=== PATIENT | female | born 1985 | race Caucasian/White ===

== ENCOUNTER 2020-04-13 15:39 | Emergency (ER) | payer BC ==
--- NOTE | 2020-04-13 17:21 | EDPHYS ---
Physician Documentation [facility] Name: Britney Siddiqui Age: 34 yrs Sex: Female : 1985 Arrival Date: 04/13/2020 Time: 15:44 Bed 6 Private MD: ED Physician Jeremias Quezada HPI: 04/13 16:31 This 34 yrs old Female presents to ER via Ambulatory with complaints of Fever.cp 16:31 The patient reports fever, that was measured at 99 degrees Fahrenheit. Onset: The cp symptoms/episode began/occurred 3 day(s) ago. Associated signs and symptoms: Pertinent negatives: abdominal pain, chills, cough, diarrhea, headache, runny nose, sinus congestion, sinus drainage, sore throat, vomiting. Severity of symptoms: in the emergency department the symptoms have improved. Patient reports she has been taking oral tylenol with last dose this morning. Historical: - Allergies: 16:01 No Known Allergies; ll1 - PSHx: 16:01 cone; ll1 - Immunization history:: Adult Immunizations unknown. - Social history:: Patient/guardian denies using alcohol, street drugs, tobacco products, Smoking status: unknown. ROS: 16:35 Constitutional: Negative for body aches, chills, fever, poor PO intake. cp 16:35 Eyes: Negative for injury, pain, redness, and discharge. cp 16:35 ENT: Negative for drainage from ear(s), ear pain, sore throat, difficulty swallowing, difficulty handling secretions. 16:35 Neck: Negative for stiffness. 16:35 Respiratory: Negative for cough, shortness of breath, wheezing. 16:35 Abdomen/GI: Negative for abdominal pain, nausea, vomiting, and diarrhea. 16:35 : Negative for urinary symptoms, vaginal bleeding. 16:35 Skin: Negative for rash. 16:35 Neuro: Negative for headache. 16:35 All other systems are negative. Exam: 16:40 Constitutional: The patient appears in no acute distress, alert, awake, non-toxic, well cp developed, well nourished. 16:40 Head/Face: Normocephalic, atraumatic. cp 16:40 Eyes: Periorbital structures: appear normal, Conjunctiva: normal, no exudate, no injection, Sclera: no appreciated abnormality, Lids and lashes: appear normal, bilaterally. 16:40 ENT: External ear(s): are unremarkable, Nose: is normal, Mouth: Lips: moist, Oral mucosa: pink and intact, moist, Posterior pharynx: is normal, airway is patent, no erythema, no exudate, Tonsils: are normal in appearance. 16:40 Neck: Lymph nodes: no appreciated lymphadenopathy. 16:40 Chest/axilla: Inspection: normal, Palpation: is normal, no crepitus, no tenderness. 16:40 Cardiovascular: Rate: normal, Rhythm: regular. 16:40 Respiratory: the patient does not display signs of respiratory distress, Respirations: normal, no use of accessory muscles, labored breathing, is not present, Breath sounds: are clear throughout, no decreased breath sounds. 16:40 Abdomen/GI: Exam negative for discomfort, distension, guarding, Inspection: gravid appearance, is noted. 16:40 Neuro: Orientation: to person, place \T\ time. Mentation: is normal. Vital Signs: 15:59 BP 136 / 81; Pulse 84; Resp 17; Temp 98.4; Pulse Ox 100% ; Pain 0/10; ll1 17:09 BP 119 / 79; Pulse 76; Resp 16; Pulse Ox 99% ; jl7 MDM: 16:02 Patient medically screened. cp 17:17 Data reviewed: vital signs, nurses notes, lab test result(s). ED course: VSS. Patient cp screened for COVID-19 and while awaiting results, will self quarantine. Will discharge to home for continued monitoring. 04/13 16:23 Order name: Influenza Screen (a \T\ B); Complete Time: 17:15 cp 04/13 17:15 Interpretation: Reviewed. 04/13 16:23 Order name: COVID-19; Complete Time: 15:16 cp 04/13 16:23 Order name: Strep; Complete Time: 17:15 cp 04/13 17:15 Interpretation: Reviewed. 04/13 16:23 Order name: Urine Microscopic Only; Complete Time: 15:16 cp 04/13 17:03 Order name: Throat Culture EDND 04/13 17:09 Order name: Urine Dipstick--Ancillary (enter results); Complete Time: 15:16 bd 04/13 16:23 Order name: Urine Dipstick-Ancillary (obtain specimen); Complete Time: 16:47 cp 04/13 16:23 Order name: Urine Test (obtain specimen); Complete Time: 16:47 cp 04/13 17:09 Order name: Urine --Ancillary (enter results); Complete Time: 15:16 bd Administered Medications: No medications were administered Disposition: 04/14 05:42 Co-signature as Attending Physician, Jeremias Quezada MD I agree with the assessment and [facility] plan of care. Disposition: 04/13/20 17:21 Discharged to Home. Impression: Encounter for examination and observation for unspecified reason - low grade fever. - Condition is Stable. - Discharge Instructions: Form - Excuse from Work, School, or Physical Activity. - Medication Reconciliation Form, Thank You Letter, Antibiotic Education, Prescription Opioid Use, Work release form form. - Follow up: Private Physician; When: 1 - 2 days; Reason: Worsening of condition. - Problem is new. - Symptoms are unchanged. Signatures: Dispatcher [employer] EDND Jeremias Quezada MD MD cha Page, Corey, PA PA cp Leal, Jahala RN RN jl7 Mariely Levy RN RN ll1 Corrections: (The following items were deleted from the chart) 04/13 17:47 17:21 04/13/2020 17:21 Discharged to Home. Impression: Encounter for examination and jl7 observation for unspecified reason - low grade fever. Condition is Stable. Forms are Medication Reconciliation Form, Thank You Letter, Antibiotic Education, Prescription Opioid Use. Follow up: Private Physician; When: 1 - 2 days; Reason: Worsening of condition. Problem is new. Symptoms are unchanged. cp
--- NOTE | 2020-04-13 17:21 | ER ---
Nurse's Notes [facility] Name: Britney Siddiqui Age: 34 yrs Sex: Female : 1985 Arrival Date: 04/13/2020 Time: 15:44 Bed 6 Private MD: Diagnosis: Encounter for examination and observation for unspecified reason-low grade fever Presentation: 04/13 15:59 Chief complaint: Patient states: Temp 99.0 for past 3 days. Sent in by Dr. Chaney for ll1 eval of low grade fever. Denies any other symptoms. 4 months . G2, P1. Coronavirus screen: Proceed with normal triage. Patient denies a cough. Patient denies shortness of breath or difficulty breathing. Patient denies measured and/or subjective temperature greater than 100.4F prior to today's visit. Patient denies travel on a cruise ship or to a country the [facility] currently lists as an affected area. Patient denies contact with known and/or suspected case of COVID-19. Ebola Screen: Patient denies travel to an Ebola-affected area in the 21 days before illness onset. Initial Sepsis Screen: Does the patient meet any 2 criteria? No. Patient's initial sepsis screen is negative. Does the patient have a suspected source of infection? No. Patient's initial sepsis screen is negative. Risk Assessment: Do you want to hurt yourself or someone else? Patient reports no desire to harm self or others. Onset of symptoms was April 10, 2020. 15:59 Method Of Arrival: Ambulatory ll1 15:59 Acuity: AVIVA 4 ll1 Historical: - Allergies: 16:01 No Known Allergies; ll1 - PSHx: 16:01 cone; ll1 - Immunization history:: Adult Immunizations unknown. - Social history:: Patient/guardian denies using alcohol, street drugs, tobacco products, Smoking status: unknown. Screenin:20 Abuse screen: Denies threats or abuse. Nutritional screening: No deficits noted. em Tuberculosis screening: No symptoms or risk factors identified. Fall Risk None identified. Assessment: 16:20 General: Appears in no apparent distress. comfortable, Behavior is calm, cooperative, em appropriate for age, reports temp. of 99.0, sent over by OB, denies weakness, cough, SOB, burning with urination, N/V/D. Pain: Denies pain. Neuro: Level of Consciousness is awake, alert, obeys commands, Oriented to person, place, time, situation, Appropriate for age. Cardiovascular: Capillary refill < 3 seconds Patient's skin is warm and dry. Respiratory: Airway is patent Respiratory effort is even, unlabored, Respiratory pattern is regular, symmetrical, Denies cough, shortness of breath. GI: Abdomen is round Patient currently denies diarrhea, nausea, vomiting. : Denies burning with urination, discharge, vaginal bleeding. Derm: Skin is intact, is healthy with good turgor, Skin is pink, warm \T\ dry. Musculoskeletal: Capillary refill < 3 seconds, Range of motion: intact in all extremities. 04/14 14:44 Reassessment: PUI: BHD 2004. Vital Signs: 04/13 15:59 BP 136 / 81; Pulse 84; Resp 17; Temp 98.4; Pulse Ox 100% ; Pain 0/10; ll1 17:09 BP 119 / 79; Pulse 76; Resp 16; Pulse Ox 99% ; jl7 ED Course: 15:44 Patient arrived in ED. mr 15:49 Jeremias Eldridge PA is PHCP. cp 15:49 Jeremias Quezada MD is Attending Physician. cp 16:01 Triage completed. ll1 16:01 Arm band placed on Patient notified of wait time. ll1 16:20 Cassius Israel, RN is Primary Nurse. em 17:10 Patient has correct armband on for positive identification. Placed in gown. Bed in low jl7 position. Call light in reach. Side rails up X 1. Pulse ox on. NIBP on. 17:47 No provider procedures requiring assistance completed. Patient did not have IV access em during this emergency room visit. Administered Medications: No medications were administered Outcome: 17:21 Discharge ordered by MD. cp 17:47 Discharged to home ambulatory. jl7 17:47 Condition: stable 17:47 Discharge instructions given to patient, Instructed on discharge instructions, follow up and referral plans. Demonstrated understanding of instructions, follow-up care. 17:47 Patient left the ED. jl7 Signatures: JorgeKisha mr Cassius Israel RN RN Cheryl Denosn RN RN Jeremias Eldridge PA PA Tristian Norman RN RN jl7 Cam, Lynsay, RN RN ll1
[2020-04-13 18:06] LABS: Urine Amorphous Sediment 2+ /HPF (NONE SEEN); Urine Bacteria <20 /HPF (<20); Urine Culture Reflex Order NOT NEEDED; Urine RBC <5 /HPF (NONE SEEN)
[2020-04-13 18:08] VITALS: TEMP 98.4
[2020-04-13 18:09] VITALS: BP 119/79; O2SAT 99
[2020-04-13 18:19] LABS: Urine Specific Gravity 1.025 (1.005-1.030)
[2020-04-13 18:20] LABS: Urine Blood NEGATIVE (NEG); Urine Glucose NEGATIVE (NEG); Urine Protein NEGATIVE (NEG); Urine pH 6.5 (5.0-7.0)
== END 2020-04-13 17:47 | disposition home or self-care (01) ==
LOC: ER 15:39
DX: Z20.828 Contact with and (suspected) exposure to other viral communicable diseases (principal)
CPT/HCPCS: 87070; 81025; 87081; 87804 ×2; 99283; U0001; 81003; 81015

== ENCOUNTER 2020-09-06 19:20 | Inpatient (IN) | payer BC, OTHER ==
[2020-09-06] MEDS ORDERED: Ringers Lactate 1,000 ML IV SCH (19:32)
[2020-09-06] MEDS ORDERED: OXYTOCIN/LR 20 UNITS/1,000 ML BAG IV SCH (19:32)
[2020-09-06] MEDS ORDERED: Ringers Lactate 1,000 ML IV PRN (19:32)
[2020-09-06] MEDS ORDERED: BUTORPHANOL 1 MG/ML INJ IV PRN (19:32)
[2020-09-06] MEDS ORDERED: METHYLERGONOVINE 0.2MG/ML AMP IM PRN (19:32)
[2020-09-06] MEDS ORDERED: PROMETHAZINE INJ 25 MG/ML AMP IM PRN (19:32)
[2020-09-06] MEDS ORDERED: CARBOPROST TROME 250 MCG/ML IM PRN (20:18)
[2020-09-06 20:54] LABS: Absolute Lymphocytes (CBC) 1.7 K/uL (0.7-4.9); Basophils % 0.3 % (0-1.3); Hematocrit 33.5 % (36.0-45.0); Lymphocytes % 18.4 % (15.3-44.8); MPV 8.8 fL (7.6-11.3); RBC Red Blood Cell Count 3.78 M/uL (3.86-4.86)
[2020-09-06 23:28] VITALS: BMI 32.6
[2020-09-07 00:35] LABS: RPR (Rapid Plasma Reagin) NON-REACT (NON-REACT)
[2020-09-07] MEDS ORDERED: FENTANYL CITR 100 MCG/2 ML ONE (07:17)
[2020-09-07] MEDS ORDERED: ROPIVACAINE HCL 20 ML ONE (07:19)
[2020-09-07] MEDS ORDERED: ROPIVACAINE HCL 100 ML IV ONE (07:26)
[2020-09-07] MEDS ORDERED: LIDOCAINE 1% MPF 30 ML VIAL ONE (09:23)
[2020-09-07] MEDS ORDERED: METHYLERGONOVINE 0.2MG/ML AMP IM ONE (09:23)
[2020-09-07] MEDS ORDERED: CARBOPROST TROME 250 MCG/ML IM ONE (09:23)
[2020-09-07] MEDS ORDERED: DOCUSATE NA/SENNA CONC 1 TAB PO PRN (10:12)
[2020-09-07] MEDS ORDERED: Oxycodone HCl/Acetaminophen 1 TAB TAB PO PRN (10:12)
[2020-09-07] MEDS ORDERED: BISACODYL 10 MG RECTAL SUPP PR PRN (10:12)
[2020-09-07] MEDS ORDERED: DIPHENHYDRAMINE 25 MG TAB/CAP PO PRN (10:12)
[2020-09-07] MEDS ORDERED: ACETAMINOPHEN 500 MG TAB PO PRN (10:12)
[2020-09-07] MEDS ORDERED: OXYTOCIN/LR 20 UNIT/1,000 ML BAG IV SCH (11:00)
--- NOTE | 2020-09-07 11:08 | PN ---
The patient has her epidural. She is very comfortable. Baby looks good. Vital signs are all stable . The patient is now 7 cm, 100% effaced, 0 station. I think the baby is rotating and certainly desc ending. I think we are in the rapid phase of labor now and should see complete dilation with the nex t hour plus or minus 30 to 45 minutes. Full discussion. Doing well. MONICA/GIFTY Voice ID: [id number] Report ID: [id number]
--- NOTE | 2020-09-07 11:33 | PN ---
The patient is now 8.5 cm. Baby is still at 0 station. I think it has not completely rotated. She cannot feel her contractions, so we have moved the epidural maintenance level from 10 to 8. We will check her again in an hours, sooner if she starts feeling significant pressure. MONICA/GIFTY Voice ID: [id number] Report ID: [id number]
[2020-09-07] MEDS: IBUPROFEN 200 MG TAB PO PRN (12:05)
[2020-09-07] MEDS: Oxycodone HCl/Acetaminophen 1 TAB TAB PO PRN ×2 (14:00→23:05)
--- NOTE | 2020-09-07 14:44 | PREOPHP ---
Date of Admission: 09/06/2020 History Of Present Illness: A 34-year-old 3, para 1, 37 weeks 3 days, had spontaneous ruptur e of membranes, came to Labor and Delivery. Gross rupture of membranes, minimal contractions at that point. The patient is Rh positive, immune to Rubella. Negative beta strep screen. COVID status pe nding. History of conization. She has been started on Pitocin, has now reached 4 cm. The baby is s till occiput posterior and she is having significant back pain. Pelvic rocks discussed with the saúl ent. She has had 1 mg of Stadol, 25 mg of Phenergan. We will get epidural going at this point to ma ke her more comfortable, but she will continue pelvic rocks. Family History: Mother with hypertension. Maternal uncle and paternal grandmother with diabetes. P aternal grandfather, uncle, and mother with cancer. The mother with cervical cancer. One of her bro thers has a defect. Allergies: SHE HAS NO ALLERGIES. Medications: She is on no medicines prior to admission other than vitamins. Social History: Does not smoke. Physical Examination: HEENT: Clear. Pupils equal, round, reactive to light and accommodation. Conjunctivae well perfused . No oral, lingual, or buccal lesions. Chest and Lungs: Clear. Heart: Without murmurs, thrills, heaves, or rubs on previous visit. Breasts: Not examined. Abdomen: Is term size. Baby is vertex. Cervix is still posterior, but she is 4 cm, rogelio reg ularly. Extremities: Clear without edema, cyanosis, or clubbing. Assessment And Plan: Anticipate delivery sometime later this morning. MONICA/GIFTY Voice ID: [id number]
--- NOTE | 2020-09-07 14:48 | OP ---
Surgeon: Lew Bright MD A 34-year-old 3, para 1, AB1, 37 weeks and 4 days, came in with spontaneous rupture of membra tristin, clear fluid. Was started on Pitocin augmentation. Had Stadol 1 mg IV, Phenergan 25 mg IM x1 at approximately 4 cm, requested and received epidural anesthesia. Second stage of about 30 minutes. Spontaneous vaginal delivery of 6 pounds 10 ounces male infant, Apgars 9 and 9. Second-degree midlin e laceration simulating episiotomy repaired with 2-0 chromic, small first-degree just below the clito ris, 1 [id number] stitch, 2-0 chromic. By was noted to have loose nuchal cord x1. 350 cc estim ated blood loss. Rh positive, immune to rubella. Negative beta strep screen. COVID status pending. Tolerated all procedures well. Final Diagnoses: Intrauterine gestation, 37 weeks 4 days spontaneous rupture of membranes, 37 weeks 5 days, vaginal delivery, epidural anesthesia. MONICA/GIFTY Voice ID: [id number] Report ID: [id number]
--- OUTSIDE RECORDS SUMMARY | 2020-09-07 22:34 | XMS REPORT | Continuity of Care Document ---
:1985 Author Organization [facility] t Address [address] [place] [address] Care Team Providers Name Role Phone Bruno Brar Attending Clinician Lab, Fam Pob I Attending Clinician Unavailable Problems This patient has no known problems. Allergies, Adverse Reactions, Alerts This patient has no known allergies or adverse reactions. Medications This patient has no known medications. Procedures This patient has no known procedures. Encounters Start End Encounter Admission Attending Care Care Encounter Source Date/Time Date/Time Type Type Clinicians Facility Department ID 2020-06-27 2020-06-27 Emergency Yudy [facility] [id number] 10:28:27 13:40:00 Ena Dugan [id number] [place] [id number] [place]on [id number] 2020-06-02 2020-06-02 Laboratory Lab, [facility] [id number] 15:03:37 15:23:37 Only Fam P[facility] I [facility] [id number] [place] [id number] [facility] [id number] nal [address] Results This patient has no known results.
[2020-09-08] MEDS ORDERED: Tdap (Diph,Pertuss(Acell),Tet Vac) 0.5 ML SYR IMVAC ONE (09:36)
[2020-09-08] MEDS: IBUPROFEN 200 MG TAB PO PRN (12:10)
[2020-09-08 13:18] VITALS: BP 112/69; TEMP 97.4
--- NOTE | 2020-09-11 13:33 | DS ---
Date of Discharge: 09/08/2020 A 34-year-old 3, para 1, 37 weeks and 3-4 days, came in with ruptured membranes. Pitocin aug mentation was performed. She subsequently delivered a 6 pounds and 10 ounces male , Apgars 9 a nd 9 at 37 weeks and 5 days. Had 1 first-degree laceration sutured with 1 [id number] stitch bel ow the clitoris. Vertical small laceration, second-degree laceration at the posterior fourchette, castellano tured with 2-0 chromic running lock. Baby had a loose nuchal cord. Estimated blood loss [address] Schultze delivery of the placenta which was inspected and noted to be intact and normal. The pat ient is Rh positive, immune to Rubella. Negative beta strep screen. COVID status is currently unkno wn. She is dismissed, request analgesics, given tramadol, to be taken as needed every 6 hours. She knows this goes through the breast milk. She is to report any temperature elevation of 100 degrees o r greater, severe pain, heavy bleeding, or any other type of abnormalities. Tdap and flu shots offer ed. No post epidural problems. Final Diagnoses: Term intrauterine at 37 weeks 4 days. Rupture of membranes, 37 weeks and 5 days. Vaginal delivery. Epidural anesthesia. Loose nuchal cord. Tdap and flu shots offered. MONICA/GIFTY Voice ID: [id number] Report ID: [id number]
== END 2020-09-08 14:44 | disposition home or self-care (01) | DRG 807 ==
LOC: 2ND-WC 19:20
PROVIDERS: ADMIT Specialist; ATTEND Specialist
PROC: 10E0XZZ Delivery of Products of Conception, External Approach (ICD-10-PCS; principal; 2020-09-07)
PROC: 0KQM0ZZ Repair Perineum Muscle, Open Approach (ICD-10-PCS; 2020-09-07)
DX: O70.1 Second degree perineal laceration during delivery (principal); Z37.0 Single live birth; Z3A.37 37 weeks gestation of pregnancy; Z20.828 Contact with and (suspected) exposure to other viral communicable diseases; Z23 Encounter for immunization
CPT/HCPCS: 36415; 85025; 86592; 86901; 87340; 90471; 90715; J0595; J2210; J2550; J2590; J2795; J3010; J7120; U0003